=== PATIENT | male | born 1970 | race Caucasian/White ===

== ENCOUNTER 2021-11-02 16:26 | Outpatient (REF) | payer OTHER, SELFPAY ==
[2021-11-03 20:39] LABS: SARS PCR* Negative SARS-CoV-2 (Negative)
== END 2021-11-02 16:27 | disposition home or self-care (01) ==
LOC: NPINS 16:26
PROVIDERS: PCP Family Medicine; Visit Provider Internal Medicine
DX: Z11.52 Encounter for screening for COVID-19 (principal)
CPT/HCPCS: 87635

== ENCOUNTER 2021-11-03 20:35 | Outpatient (CLI) | payer OTHER, SELFPAY | END 2021-11-03 20:36 | disposition home or self-care (01) | LOC: SLEEP 20:35 | PROVIDERS: PCP Family Medicine; Visit Provider Internal Medicine | DX: G47.33 Obstructive sleep apnea (adult) (pediatric) (principal) | CPT/HCPCS: 95810 ==

== ENCOUNTER 2022-10-06 13:32 | Emergency (ER) | payer OTHER, SELFPAY ==
[2022-10-06] VITALS (24 sets, daily range): BP systolic 100–130; BP diastolic 63–94; PULSE 71–88; RESP 16–26; TEMP 36.2–38.6; O2SAT 93–99; BMI 31.0
--- NOTE | 2022-10-06 14:02 | CRLHL7_ITS ---
For Patients: As a result of the Century Cures Act, medical imaging exams and procedure reports are released immediately into your electronic medical record. You may view this report before your referring provider. If you have questions, please contact your health care provider. INDICATION: Leg pain and swelling. TECHNIQUE: Ultrasound venous duplex lower left extremity. Compression venous exam was performed using kulkarni-scale, color Doppler, and spectral Doppler analysis. COMPARISON: None. FINDINGS: Deep veins: Acute DVT involving the visualized left external iliac vein, left common femoral vein, deep femoral vein, femoral vein, popliteal vein, and posterior tibial vein. Superficial veins: Greater saphenous vein is fully compressible. No popliteal cyst. IMPRESSION: Acute DVT involving the visualized left external iliac vein, left common femoral vein, deep femoral vein, femoral vein, popliteal vein, posterior tibial vein. Case discussed with Jv Wing at 4 p.m. on 10/06/2022. Dictated by Adriano Self MD @ 10/06/2022 4:00:15 PM (Electronically Signed)
--- NOTE | 2022-10-06 14:41 | ED.GENADULT ---
HPI - General Adult General Time Seen by Provider: 14:41 Date Seen: 10/06/22 Chief complaint: Lower Extremity Swelling Stated complaint: deep vein thrombosis Time Seen by Provider: 10/06/22 14:40 History of Present Illness HPI narrative: 52-year-old male with history of COPD, sleep apnea, previous shoulder dislocation, presenting to the ER today with concern for pain involving the left buttock, left groin, left thigh, left lower leg with swelling of the thigh and lower leg. Pain initially began with pain in his buttock about 4 days ago on Monday. No antecedent trauma, unusual activity, or known injury. He did have a plane flight to [place] and back about 2 weeks ago and ever since then both of his legs have been mildly sore. He has not had any swelling of his right leg. No abdominal pain or back pain. Over the next couple of days after Monday he began to have worsening pain 1st in his left buttock, then his left groin, Makenzie his left medial thigh and now all the way down to his left lower leg. He is not having any chest pain or shortness of breath. He has had spells where he has been slightly dizzy and sweaty. No pleuritic pain. No cough. No fever. Is not anticoagulated. His gave him 4 baby aspirin this morning. No personal or family history of DVT/PE. No known genetic coagulopathy however he is adopted. Related Data Home Medications Medication Instructions Recorded Confirmed No Known Home Medications 10/06/22 10/06/22 Allergies Allergy/AdvReac Type Severity Reaction Status Date / Time bee venom protein (honey bee) Allergy Severe SOB Verified 10/06/22 13:45 Penicillins Allergy Severe SOB Verified 10/06/22 13:45 Review of Systems Narrative: negative PFSH PFSH Social History Smoking Status: Former smoker Do you use any of these nicotine containing products: Smokeless Tobacco Second hand tobacco smoke exposure: No How often do you have a drink containing alcohol: monthly or less How many standard drinks containing alcohol do you have on a typical day: 1 or 2 How often do you have six or more drinks on one occasion: Never AUDIT-C Alcohol total score: 1 Non-prescribed substance use: denies use service: No Exam Narrative: Exam Narrative: Constitutional: Appears well-developed and well-nourished. Alert. Conversant. Non toxic. HENT: Head: Atraumatic. Nose: Nose normal. Mouth/Throat: Oral mucosa is clear and moist. no trismus. Pharynx normal. Tonsils symmetric. No tonsillar enlargement, erythema, or exudate. Eyes: Conjunctivae normal. EOM normal. Pupils equal, round, and reactive to light. No scleral icterus. Neck: Normal range of motion. Neck supple. No tracheal deviation present. Cardiovascular: Normal rate, regular rhythm. No gallop. No friction rub. No murmur heard. Symmetric radial and DP and PT and femoral artery pulses Pulmonary/Chest: Effort normal. No stridor. No respiratory distress. No wheezes. No rales. No rhonchi . No tenderness. Abdominal: Soft. Bowel sounds normal. No distension. No mass. No tenderness. No rebound. No guarding. Musculoskeletal: RUE: Normal range of motion. No tenderness. No deformity LUE: Normal range of motion in hip, knee, ankle. He does have tenderness and swelling involving the medial thigh, down to the knee and some swelling of his calf. Skin is pink, warm. Brisk cap refill is RLE: Normal range of motion. No edema. No tenderness. No deformity LLE: No deformity. He does have tenderness and swelling involving the left groin, left medial thigh, as well as swelling involving the calf with some edema all the way down to the ankle. There is no cyanosis or pallor. Lymph: No cervical adenopathy. Neurological: Alert and oriented to person, place, and time. Normal strength. CN II-VII intact. No sensory deficit. GCS eye subscore is 4. GCS verbal subscore is 5. GCS motor subscore is 6. Normal coordination Skin: Skin is warm and dry. No rash noted. No pallor. Normal capillary refill. Psychiatric: Normal mood. Normal affect. Const: Vital Signs, click to edit/add: Vital Signs - 24 hr 10/06/22 13:40 10/06/22 14:56 10/06/22 15:06 Temperature 97.2 F L Pulse Rate 71 Pulse Rate [Pulse Oximeter] 76 74 Respiratory Rate 16 26 H Blood Pressure Blood Pressure [Ri ght Upper Arm] 124/63 112/67 Pulse Oximetry 95 94 96 Oxygen Delivery Me thod Room Air Room Air 10/06/22 15:15 10/06/22 15:30 10/06/22 15:45 Temperature Pulse Rate 73 77 71 Pulse Rate [Pulse Oximeter] Respiratory Rate Blood Pressure Blood Pressure [Ri ght Upper Arm] Pulse Oximetry 96 95 97 Oxygen Delivery Me thod 10/06/22 16:00 10/06/22 16:15 10/06/22 16:28 Temperature Pulse Rate 76 74 79 Pulse Rate [Pulse Oximeter] Respiratory Rate Blood Pressure 112/77 Blood Pressure [Ri ght Upper Arm] Pulse Oximetry 95 98 97 Oxygen Delivery Me thod 10/06/22 16:29 10/06/22 16:31 10/06/22 16:31 Temperature Pulse Rate 88 82 Pulse Rate [Pulse Oximeter] 86 Respiratory Rate 18 Blood Pressure 112/67 Blood Pressure [Ri ght Upper Arm] 112/77 Pulse Oximetry 99 99 98 Oxygen Delivery Me thod Room Air 10/06/22 16:45 10/06/22 17:01 10/06/22 17:01 Temperature Pulse Rate 79 75 78 Pulse Rate [Pulse Oximeter] Respiratory Rate Blood Pressure 117/94 H Blood Pressure [Ri ght Upper Arm] Pulse Oximetry 98 98 98 Oxygen Delivery Me thod 10/06/22 17:16 10/06/22 17:31 10/06/22 17:32 Temperature Pulse Rate 75 78 79 Pulse Rate [Pulse Oximeter] Respiratory Rate Blood Pressure 121/72 Blood Pressure [Ri ght Upper Arm] Pulse Oximetry 98 98 97 Oxygen Delivery Me thod 10/06/22 17:33 10/06/22 17:46 10/06/22 18:00 Temperature Pulse Rate 78 85 80 Pulse Rate [Pulse Oximeter] Respiratory Rate Blood Pressure Blood Pressure [Ri ght Upper Arm] Pulse Oximetry 98 93 99 Oxygen Delivery Me thod 10/06/22 18:02 10/06/22 18:03 10/06/22 19:43 Temperature Pulse Rate 79 79 Pulse Rate [Pulse Oximeter] 82 Respiratory Rate 16 Blood Pressure 113/72 Blood Pressure [Ri ght Upper Arm] 130/84 Pulse Oximetry 98 98 99 Oxygen Delivery Me thod Room Air Course Course Hospital Course: Patient recheck on multiple occasions. Hemodynamically stable. At about 730 he was requesting pain medicine for his left leg. No sign of any new or worsening ischemia or complication. Dilaudid p.r.n. ordered. Vital Signs Vital signs: Initial Vital Signs Temperature 97.2 F L 10/06/22 13:40 Temperature Source Temporal Artery Scan 10/06/22 13:40 Pulse Rate 76 10/06/22 13:40 Pulse Rhythm Regular 10/06/22 13:40 Pulse Strength 3+ Normal 10/06/22 13:40 Respiratory Rate 16 10/06/22 13:40 Blood Pressure 124/63 10/06/22 13:40 Blood Pressure Mean 83 10/06/22 13:40 Blood Pressure Position Sitting 10/06/22 13:40 Pulse Oximetry 95 10/06/22 13:40 Oxygen Delivery Method Room Air 10/06/22 13:40 Vital Signs Temperature 97.2 F L 10/06/22 13:40 Pulse Rate 76 10/06/22 13:40 Respiratory Rate 16 10/06/22 13:40 Blood Pressure 124/63 10/06/22 13:40 Pulse Oximetry 95 10/06/22 13:40 Oxygen Delivery Method Room Air 10/06/22 13:40 Temperature 97.2 F L 10/06/22 13:40 Pulse Rate 82 10/06/22 19:43 Respiratory Rate 16 10/06/22 19:43 Blood Pressure 130/84 10/06/22 19:43 Pulse Oximetry 99 10/06/22 19:43 Oxygen Delivery Method Room Air 10/06/22 19:43 Medical Decision Making MDM Narrative Medical decision making narrative: Very pleasant 52-year-old male presenting to the ER today with pain and swelling this started a few days ago in his left buttock, then moved to his left groin, and now involves his entire left lower extremity. Workup here shows evidence for a DVT affecting the left leg. There is a fairly large clot burden with a clot extending all the way from the external vein distally. Fortunately there is no evidence for distal limb ischemia, compartment syndrome, phlegmasia cerulea dolens yet. He has also had some intermittent episodes of sweatiness and shortness of breath. CT scan does also confirm a right lower lobe pulmonary embolism. Fortunately no signs of heart strain on CT, or by labs, or by EKG. He started on heparin here in the ER. Based on the extent of his DVT we feel that transfer to a facility with IR and vascular is indicated to consider possible catheter directed thrombolysis or thrombectomy. Patient and his are agreeable. He is accepted by Dr. Metzger at [facility]. Unfortunately there was an extensive delay before he can receive a bed. He is currently hemodynamically stable, is on heparin drip. He will board here in the ER until transfer can be arranged. Discussed with my oncoming partner, Dr. Ervin Lab Data Labs: Lab Results 10/06/22 10/06/22 Range/Units 15:42 Unknown WBC 11.89 H (4.50-11.00) K/uL RBC 4.06 L (4.30-5.90) m/uL Hgb 11.5 L (13.5-17.5) gm/dL Hct 35.5 L (37.0-53.0) % MCV 87 (80-100) fL MCH 28 (26-34) pg MCHC 32 (32-36) gm/dL RDW Coeff of Jen 12.4 (11.5-15.5) % Plt Count 319 (140-440) K/uL Neut % (Auto) 74.0 H (42.0-72.0) % Lymph % (Auto) 13.5 L (20-44) % [place] % (Auto) 10.0 (0.0-11.0) % Eos % (Auto) 1.7 (0.0-7.0) % Baso % (Auto) 0.3 (0.0-3.0) % Neut # (Auto) 8.80 H (1.7-7.0) K/uL Lymph # (Auto) 1.60 (0.90-2.90) K/uL [place] # (Auto) 1.20 H (0.00-0.90) K/UL Eos # (Auto) 0.20 (0.00-0.50) K/uL Baso # (Auto) 0.00 (0.00-0.30) K/uL Abs Immat Gran (auto) 0.10 (0.00-0.30) K/uL Imm/Tot Granulo (auto) 0.5 % INR 1.13 H (0.91-1.10) APTT 31 (23-33) Seconds Sodium 137 (135-149) mmol/L Potassium 3.7 (3.6-5.1) mmol/L Chloride 102 (96-114) mmol/L Carbon Dioxide 28 (20-32) mmol/L BUN 24 (7-30) mg/dL Creatinine 1.1 (0.5-1.5) mg/dL Estimated Creat Clear 86.76 Estimated GFR 80 ml/min Glucose 101 (60-115) mg/dL Calcium 8.7 (8.4-10.6) mg/dL Troponin I < 0.01 L (0.01-0.04) ng/mL Imaging Data CT scan - chest: Attestation: I have reviewed the pertinent imaging results. Radiologist's impression: Discussed with radiologist by phone. Per completed chart, impression is as follows IMPRESSION: Acute pulmonary emboli in the right lower lobe segmental/subsegmental pulmonary arteries. No definite right heart strain. Venous US: Attestation: I have reviewed the pertinent imaging results. My impression: Discussed with optical manufacturing technician indicates the patient has an extensive left lower extremity DVT extending from the external iliac vein all the way down through the distal veins of the calf. More proximal vein appears to be open. Radiologist's impression: iMPRESSION: Acute DVT involving the visualized left external iliac vein, left common femoral vein, deep femoral vein, femoral vein, popliteal vein, posterior tibial vein. Discharge Plan Discharge Clinical Impression: DVT (deep venous thrombosis), Pulmonary embolism Patient Disposition: [facility] Condition: Guarded Prescriptions: No Action No Known Home Medications Stand Alone Forms: Backyard Info Instructions
--- NOTE | 2022-10-06 15:26 | CRLHL7_ITS ---
For Patients: As a result of the Century Cures Act, medical imaging exams and procedure reports are released immediately into your electronic medical record. You may view this report before your referring provider. If you have questions, please contact your health care provider. INDICATION: Diaphoresis, dizziness. TECHNIQUE: CT chest PE was acquired with 95 cc Isovue 370. IV contrast. COMPARISON: None. FINDINGS: Heart and vasculature: Contrast opacification of the pulmonary arterial tree is adequate. Acute pulmonary emboli involving the right lower lobe segmental/subsegmental pulmonary arteries. Heart size is normal. Thoracic aorta and pulmonary artery are normal in caliber. Lungs and pleura: Scattered atelectasis. No suspicious nodules or infiltrates. No pleural effusions, pleural thickening, or pneumothorax. Lymph nodes/mediastinum: No mediastinal, hilar, or axillary adenopathy. Calcified mediastinal lymph nodes consistent with healed granulomatous disease. Chest wall: No masses. Upper abdomen: No acute or significant findings. Bones: Unremarkable for age. IMPRESSION: Acute pulmonary emboli in the right lower lobe segmental/subsegmental pulmonary arteries. No definite right heart strain. No focal consolidations. Case discussed with Dr. Wing at 5:40 p.m. on 10/06/2022. Please note that all CT scans at this facility use dose modulation, iterative reconstruction, and/or weight-based dosing when appropriate to reduce radiation dose to as low as reasonably achievable. Dictated by Adriano Self MD @ 10/06/2022 5:40:33 PM (Electronically Signed)
[2022-10-06 15:51] LABS: Basophils Percent Auto 0.3 % (0.0-3.0); Eosinophils Percent Auto 1.7 % (0.0-7.0); Hematocrit 35.5 % (37.0-53.0); Hemoglobin* 11.5 gm/dL (13.5-17.5); Immature Granulocytes Pct Auto 0.5 %; Lymphocytes Percent Auto 13.5 % (20-44); Mean Corpuscular HGB Conc 32 gm/dL (32-36); Mean Corpuscular Hemoglobin 28 pg (26-34); Mean Corpuscular Volume 87 fL (80-100); Platelet Count* 319 K/uL (140-440); RDW Coefficient of Variation % 12.4 % (11.5-15.5); Red Blood Count 4.06 m/uL (4.30-5.90); White Blood Count* 11.89 K/uL (4.50-11.00)
[2022-10-06 16:02] LABS: Slide Review Reflex No
[2022-10-06 16:03] LABS: Chloride* 102 mmol/L (96-114); Potassium* 3.7 mmol/L (3.6-5.1); Sodium* 137 mmol/L (135-149)
[2022-10-06 16:06] LABS: Blood Urea Nitrogen* 24 mg/dL (7-30); Carbon Dioxide* 28 mmol/L (20-32); Creatinine* 1.1 mg/dL (0.5-1.5); Est. Creatinine Clearance* 86.76; Estimated Glomerular Filt Rate 80 ml/min
[2022-10-06 16:07] LABS: Calcium* 8.7 mg/dL (8.4-10.6); Glucose* 101 mg/dL (60-115); INR 1.13 (0.91-1.10); Prothrombin Time 15.2 Seconds
[2022-10-06 16:19] LABS: Troponin I* < 0.01 ng/mL (0.01-0.04)
[2022-10-06 18:08] LABS: Partial Thromboplastin Time* 31 Seconds (23-33)
[2022-10-06] MEDS: HEPARIN 5,000 UNIT/0.5 ML INJ 8500 UNIT IVP (18:08)
[2022-10-06] MEDS: HEPARIN 25,000 UNIT/500 ML BAG 30 UNIT IV (18:26)
--- NOTE | 2022-10-06 19:44 | PC.NURSE ---
pt on phone, warm blankets given. requests pain medication.
--- NOTE | 2022-10-06 19:50 | PC.NURSE ---
pt's here, per physician okay to eat dinner. medication ordered for pain (see MAR).
[2022-10-06] MEDS: ACETAMINOPHEN 500 MG TABLET 1000 MG PO (20:38)
[2022-10-06] MEDS: HYDROmorphone 0.5 mg/0.5 ml inj IVP (20:40)
[2022-10-06] MEDS: 0.9 % SODIUM CHLORIDE 1000 ml 1,000 ML IV (20:41)
--- NOTE | 2022-10-06 21:34 | PC.NURSE ---
report given to BRENNAN Cornell. pt to go to [facility] room 5232, tranfer here.
[2022-10-06 22:05] LABS: SARS PCR* Negative SARS-CoV-2 (Negative)
== END 2022-10-06 23:54 | disposition short-term general hospital (02) ==
PROVIDERS: Emergency Provider Emergency Medicine; PCP Family Medicine
DX: I82.409 Acute embolism and thrombosis of unspecified deep veins of unspecified lower extremity (principal); I26.99 Other pulmonary embolism without acute cor pulmonale
CPT/HCPCS: 36415; 71275; 80048; 84484; 85025; 85610; 85730; 87040; 87635; 93005; 93971; 99285; A9270; J1170; J1644; J7030; Q9967

== ENCOUNTER 2022-10-06 21:38 | Outpatient (CLI) | payer OTHER, SELFPAY | END 2022-10-06 21:39 | disposition home or self-care (01) | LOC: AMB 10-10 10:26 | PROVIDERS: PCP Family Medicine; Visit Provider Emergency Medicine Emergency Medical Services | DX: I26.99 Other pulmonary embolism without acute cor pulmonale (principal); I82.409 Acute embolism and thrombosis of unspecified deep veins of unspecified lower extremity | CPT/HCPCS: A0425; A0426; A0427 ==

== ENCOUNTER 2022-10-10 18:11 | Emergency (ER) | payer OTHER, SELFPAY ==
[2022-10-10 18:14] VITALS: BP 122/63; PULSE 84; RESP 18; TEMP 36.3; O2SAT 100; BMI 31.7
== END 2022-10-10 18:33 | disposition left against medical advice (07) ==
PROVIDERS: Emergency Provider Emergency Medicine Emergency Medical Services; PCP Family Medicine
DX: Z53.21 Procedure and treatment not carried out due to patient leaving prior to being seen by health care provider (principal)

== ENCOUNTER 2022-10-16 19:04 | Emergency (ER) | payer OTHER, SELFPAY ==
[2022-10-16 19:15] VITALS: BP 118/77; PULSE 83; RESP 18; TEMP 36.4; O2SAT 97; BMI 31.0
--- NOTE | 2022-10-16 20:32 | ED.GENADULT ---
HPI - General Adult General Time Seen by Provider: 20:32 <Lindsey Hicks MD - Last Filed: 10/18/22 07:59> Date Seen: 10/16/22 <Lindsey Hicks MD - Last Filed: 10/18/22 07:59> Chief complaint: Post Op Complication <Lindsey Hicks MD - Last Filed: 10/18/22 07:59> Stated complaint: possible post op infection <Lindsey Hicks MD - Last Filed: 10/18/22 07:59> Time Seen by Provider: 10/16/22 20:14 <Lindsey Hicks MD - Last Filed: 10/18/22 07:59> Source: patient, RN notes reviewed and old records reviewed <Lindsey Hicks MD - Last Filed: 10/18/22 07:59> Mode of arrival: ambulatory <Lindsey Hicks MD - Last Filed: 10/18/22 07:59> Limitations: no limitations <Lindsey Hicks MD - Last Filed: 10/18/22 07:59> History of Present Illness HPI narrative: Patient is a 52-year-old male coming in with concern for possible infection of vascular sites. Patient has had a recent complex history of diagnosis of significant occlusive DVT in his left lower extremity and pulmonary embolus on October 06, was transferred to [facility]. He reportedly underwent thrombectomy and had stent placement in the vein. He was discharged on Plavix and Eliquis. He was readmitted with recurrent DVT, had TPA infusion and then recurrent thrombectomy. Was discharged on aspirin, Plavix and Lovenox. He has not missed any doses of Lovenox. He has been consistently taking them on time. He has no respiratory symptoms, no chest pain. What brought them back today is the thigh is looking more swollen, had been decreasing in size, is developing a rash on this leg that has been progressive. The lower site in his calf from 1 of the procedures rubbed on the bed in did start bleeding. She noticed a little redness, his , on an upper site on the posterior aspect of his leg where he had some of the vascular work done. They are wondering if he could have an infection. He had a temperature of 99.9? this afternoon. He has been wearing compression stockings on both legs, the other leg was not having the rash. Thus, not likely a heat rash from compression stockings being worn. Rash maybe feels slightly itchy, he has not taken anything for it. His notes that she feels like his pulses are a little diminished in his left foot now when he stands, the great toe on that side gets a little more purple and dusky with standing and it had not been prior today. Overall he is not having increased pain in this leg, no numbness tingling. <Lindsey Hicks MD - Last Filed: 10/18/22 07:59> Related Data Home medications: Home Medications Medication Instructions Recorded Confirmed Eliquis DVT-PE Treat 30D Start 10/10/22 Plavix 10/10/22 aspirin 81 mg tablet,delayed PO 10/16/22 release enoxaparin 100 mg/mL subcutaneous mg subcut 10/16/22 syringe <Lindsey Hicks MD - Last Filed: 10/18/22 07:59> Allergies/adverse reactions: Allergies Allergy/AdvReac Type Severity Reaction Status Date / Time bee venom protein (honey bee) Allergy Severe SOB Verified 10/06/22 13:45 Penicillins Allergy Severe SOB Verified 10/06/22 13:45 <Lindsey Hicks MD - Last Filed: 10/18/22 07:59> Review of Systems Status of ROS: Reports: 6 or more systems reviewed and unremarkable except as noted in History and below <Lindsey Hicks MD - Last Filed: 10/18/22 07:59> [facility] Medical History: Medical History DVT (deep venous thrombosis) ?I82.409 - Acute embolism and thrombosis of unspecified deep veins of unspecified lower extremity (ICD-10) <Lindsey Hicks MD - Last Filed: 10/18/22 07:59> Social History: Social History Smoking Status: Former smoker Do you use any of these nicotine containing products: Smokeless Tobacco Second hand tobacco smoke exposure: No How often do you have a drink containing alcohol: monthly or less How many standard drinks containing alcohol do you have on a typical day: 1 or 2 How often do you have six or more drinks on one occasion: Never AUDIT-C Alcohol total score: 1 Non-prescribed substance use: denies use service: No <Lindsey Hicks MD - Last Filed: 10/18/22 07:59> Exam Const: Vital Signs, click to edit/add: Vital Signs - 24 hr 10/16/22 19:15 10/16/22 20:44 10/16/22 20:45 Temperature 97.5 F L Pulse Rate Pulse Rate [Pulse Oximeter] 83 83 Respiratory Rate 18 18 Blood Pressure Blood Pressure [Ri ght Upper Arm] 118/77 Pulse Oximetry 97 98 98 Oxygen Delivery Me thod Room Air Room Air 10/16/22 22:46 10/16/22 23:02 10/17/22 00:01 Temperature 98.2 F Pulse Rate 80 78 Pulse Rate [Pulse Oximeter] 78 Respiratory Rate 16 16 16 Blood Pressure 128/84 118/69 Blood Pressure [Ri ght Upper Arm] 126/80 Pulse Oximetry 99 99 96 Oxygen Delivery Me thod Room Air 10/17/22 00:12 10/17/22 01:01 10/17/22 02:02 Temperature 98.2 F Pulse Rate 72 85 Pulse Rate [Pulse Oximeter] Respiratory Rate 16 16 Blood Pressure 109/57 L 130/75 Blood Pressure [Ri ght Upper Arm] Pulse Oximetry 97 96 Oxygen Delivery Me thod 10/17/22 03:02 10/17/22 04:03 10/17/22 05:02 Temperature Pulse Rate 76 89 92 Pulse Rate [Pulse Oximeter] Respiratory Rate 16 16 16 Blood Pressure 104/58 L 119/85 125/74 Blood Pressure [Ri ght Upper Arm] Pulse Oximetry 98 96 98 Oxygen Delivery Me thod 10/17/22 06:05 10/17/22 07:04 Temperature Pulse Rate 80 84 Pulse Rate [Pulse Oximeter] Respiratory Rate 16 16 Blood Pressure 125/74 118/60 Blood Pressure [Ri ght Upper Arm] Pulse Oximetry 94 97 Oxygen Delivery Me thod 52-year-old male is alert interactive no apparent distress, able speak in complete sentences. Face atraumatic, sclera clear, conjugate gaze. Neck supple, note no jugular venous distension or masses. Lungs are clear, good air entry, no wheezing or crackles. CV regular rate and rhythm, no murmur, normal S1 and S2. Abdomen is soft, nontender nondistended. Left thigh is grossly larger than the right and is afflicted with erythematous macular papular type rash. There are no vesicles, really is a nondescript looking rash. The rash is blanchable, not petechial. His left lower extremity is a little bit more edematous than the right but the left thigh is really what is most markedly swollen. It is not tender when I palpate. The procedural wounds on the back of the leg do not appear infected to me. He has whitish eschar on the upper outer wound behind the knee and the lower 1 has some dried blood around it. His it had these bandaged and I did remove them. Looking at these wounds, I am not worried about infection. Reviewed with them that the rash looks more reminiscent of possibly drug reaction? Did review with him that I certainly will consider infectious etiology. <Lindsey Hicks MD - Last Filed: 10/18/22 07:59> Vital Signs, click to edit/add: Vital Signs - 24 hr 10/16/22 19:15 10/16/22 20:44 10/16/22 20:45 Temperature 97.5 F L Pulse Rate Pulse Rate [Pulse Oximeter] 83 83 Respiratory Rate 18 18 Blood Pressure Blood Pressure [Ri ght Upper Arm] 118/77 Pulse Oximetry 97 98 98 Oxygen Delivery Me thod Room Air Room Air 10/16/22 22:46 10/16/22 23:02 10/17/22 00:01 Temperature 98.2 F Pulse Rate 80 78 Pulse Rate [Pulse Oximeter] 78 Respiratory Rate 16 16 16 Blood Pressure 128/84 118/69 Blood Pressure [Ri ght Upper Arm] 126/80 Pulse Oximetry 99 99 96 Oxygen Delivery Me thod Room Air 10/17/22 00:12 10/17/22 01:01 10/17/22 02:02 Temperature 98.2 F Pulse Rate 72 85 Pulse Rate [Pulse Oximeter] Respiratory Rate 16 16 Blood Pressure 109/57 L 130/75 Blood Pressure [Ri ght Upper Arm] Pulse Oximetry 97 96 Oxygen Delivery Me thod 10/17/22 03:02 10/17/22 04:03 10/17/22 05:02 Temperature Pulse Rate 76 89 92 Pulse Rate [Pulse Oximeter] Respiratory Rate 16 16 16 Blood Pressure 104/58 L 119/85 125/74 Blood Pressure [Ri ght Upper Arm] Pulse Oximetry 98 96 98 Oxygen Delivery Me thod 10/17/22 06:05 10/17/22 07:04 Temperature Pulse Rate 80 84 Pulse Rate [Pulse Oximeter] Respiratory Rate 16 16 Blood Pressure 125/74 118/60 Blood Pressure [Ri ght Upper Arm] Pulse Oximetry 94 97 Oxygen Delivery Me thod <Nayla Huang MD - Last Filed: 10/17/22 07:46> Documenting provider has reviewed patient's vital signs: yes <Lindsey Hicks MD - Last Filed: 10/18/22 07:59> Course Course Hospital Course: Patient has a complex history of recurrent thromboembolic disease and failed anticoagulant course recently. Need to obtain an ultrasound of his left lower extremity to see if there is recurrent DVT. I am wondering if the rash is maybe possibly drug related. He is not that symptomatic at this time and certainly does not appear petechial. We will be getting full set a labs, will initiate 1 blood culture and we can do a 2nd 1 if this is looking like it might be infectious in nature. He currently is hemodynamically stable. Will have him take his Lovenox injection at his scheduled time tonight as we do not want him to miss that. <Lindsey Hicks MD - Last Filed: 10/18/22 07:59> Reevaluation(s) Time of Reevaluation #1: 21:33 <Lindsey Hicks MD - Last Filed: 10/18/22 07:59> Reevaluation #1: Nursing had reported to me that patient was noting increased seen area of the rash onto his torso when he gave himself his Lovenox shot that was do this evening. I did stop in and indeed he does have a faint erythematous maculopapular type rash developing on abdomen and chest. It is not all that symptomatic, he is hemodynamically stable. We are waiting labs, ultrasound of his left lower extremity to be redone. <Lindsey Hicks MD - Last Filed: 10/18/22 07:59> Time of Reevaluation #2: 23:46 <Lindsey Hicks MD - Last Filed: 10/18/22 07:59> Reevaluation #2: We are waiting for decorator consultant to contact me back from [facility]. Had asked staff to contact them back as I had not heard, their waiting Hematology to page back. Reviewed this with the patient and his , they never did see hematology at [facility], spoke with Interventional Radiology and vascular up there but have never seeing hematology. Reviewed with them that the ICU physician reviewed with the access center that they recommended Hematology. I will contact the ICU physician and see if we can review this case to come up with management plan. Patient believes that he was told that his leg was clear of clot at discharge. This was reportedly based on a venogram potentially. <Lindsey Hicks MD - Last Filed: 10/18/22 07:59> Time of Reevaluation #3: 00:14 <Lindsey Hicks MD - Last Filed: 10/18/22 07:59> Reevaluation #3: Reviewed with patient and his that it spoke with the cooking instructor at [facility]. He is placed on the waiting list, will need to talk to the hospitalist to give final report and acceptance. Reviewed the heparin drip without a bolus as he has been on Lovenox. <Lindsey Hicks MD - Last Filed: 10/18/22 07:59> Consultations Consultation #1: Did finally speak with the cooking instructor Dr. Melgar from [facility]. Reviewed the situation in he was able to review the chart. He recommended that we start the patient on heparin drip without bolus given he had been on Lovenox. He had the access center place the patient on the wait list, we will need to talk to the hospitalist eventually. He discuss that they can do a punch biopsy of the rash once up there, consult vascular, redo venogram if need be. <Lindsey Hicks MD - Last Filed: 10/18/22 07:59> Time: 11:56 <Lindsey Hicks MD - Last Filed: 10/18/22 07:59> Time: 05:20 <Nayla Huang MD - Last Filed: 10/17/22 07:46> Consultation #3: I accepted care from the evening provider. Patient was started on heparin drip. I continued seeing new patients. Per nursing team, he has remained stable and has not required any interventions. Vital signs were briefly reviewed. Patient with extensive DVT in now concern for occlusive thrombus per my outgoing partner. New rash and increased swelling in the leg. Patient has been accepted by Dr. Mclaughlin at [facility], anticipating bed availability within the hour and ALS transfer. Will remain on heparin drip. <Nayla Huang MD - Last Filed: 10/17/22 07:46> Time: 07:25 <Nayla Huang MD - Last Filed: 10/17/22 07:46> Additional Consultation(s): Patient transferred without complication via EMS <Nayla Huang MD - Last Filed: 10/17/22 07:46> Vital Signs Vital signs: Initial Vital Signs Temperature 97.5 F L 10/16/22 19:15 Temperature Source Temporal Artery Scan 10/16/22 19:15 Pulse Rate 83 10/16/22 19:15 Respiratory Rate 18 10/16/22 19:15 Blood Pressure 118/77 10/16/22 19:15 Blood Pressure Mean 90 10/16/22 19:15 Blood Pressure Position Sitting 10/16/22 19:15 Pulse Oximetry 97 10/16/22 19:15 Oxygen Delivery Method Room Air 10/16/22 19:15 Vital Signs Temperature 97.5 F L 10/16/22 19:15 Pulse Rate 83 10/16/22 19:15 Respiratory Rate 18 10/16/22 19:15 Blood Pressure 118/77 10/16/22 19:15 Pulse Oximetry 97 10/16/22 19:15 Oxygen Delivery Method Room Air 10/16/22 19:15 Temperature 98.2 F 10/17/22 00:12 Pulse Rate 84 10/17/22 07:04 Respiratory Rate 16 10/17/22 07:04 Blood Pressure 118/60 10/17/22 07:04 Pulse Oximetry 97 10/17/22 07:04 Oxygen Delivery Method Room Air 10/16/22 22:46 <Lindsey Hicks MD - Last Filed: 10/18/22 07:59> Initial Vital Signs Temperature 97.5 F L 10/16/22 19:15 Temperature Source Temporal Artery Scan 10/16/22 19:15 Pulse Rate 83 10/16/22 19:15 Respiratory Rate 18 10/16/22 19:15 Blood Pressure 118/77 10/16/22 19:15 Blood Pressure Mean 90 10/16/22 19:15 Blood Pressure Position Sitting 10/16/22 19:15 Pulse Oximetry 97 10/16/22 19:15 Oxygen Delivery Method Room Air 10/16/22 19:15 Vital Signs Temperature 97.5 F L 10/16/22 19:15 Pulse Rate 83 10/16/22 19:15 Respiratory Rate 18 10/16/22 19:15 Blood Pressure 118/77 10/16/22 19:15 Pulse Oximetry 97 10/16/22 19:15 Oxygen Delivery Method Room Air 10/16/22 19:15 Temperature 98.2 F 10/17/22 00:12 Pulse Rate 84 10/17/22 07:04 Respiratory Rate 16 10/17/22 07:04 Blood Pressure 118/60 10/17/22 07:04 Pulse Oximetry 97 10/17/22 07:04 Oxygen Delivery Method Room Air 10/16/22 22:46 <Nayla Huang MD - Last Filed: 10/17/22 07:46> Medical Decision Making Lab Data Lab results reviewed: Yes I reviewed the patient's lab results <Lindsey Hicks MD - Last Filed: 10/18/22 07:59> Labs: Lab Results 10/16/22 10/17/22 Range/Units 20:55 06:44 WBC 13.62 H 11.34 H (4.50-11.00) K/uL RBC 3.91 L 3.88 L (4.30-5.90) m/uL Hgb 11.1 L 11.0 L (13.5-17.5) gm/dL Hct 34.4 L 34.1 L (37.0-53.0) % MCV 88 88 (80-100) fL MCH 28 28 (26-34) pg MCHC 32 32 (32-36) gm/dL RDW Coeff of Jen 12.8 12.9 (11.5-15.5) % Plt Count 485 H 464 H (140-440) K/uL Neut % (Auto) 71.7 68.3 (42.0-72.0) % Lymph % (Auto) 14.7 L 16.4 L (20-44) % Emery % (Auto) 6.5 7.1 (0.0-11.0) % Eos % (Auto) 2.4 3.8 (0.0-7.0) % Baso % (Auto) 0.4 0.4 (0.0-3.0) % Neut # (Auto) 9.80 H 7.70 H (1.7-7.0) K/uL Lymph # (Auto) 2.00 1.90 (0.90-2.90) K/uL Emery # (Auto) 0.90 0.80 (0.00-0.90) K/UL Eos # (Auto) 0.30 0.40 (0.00-0.50) K/uL Baso # (Auto) 0.10 0.00 (0.00-0.30) K/uL Abs Immat Gran (auto) 0.60 H 0.50 H (0.00-0.30) K/uL Imm/Tot Granulo (auto) 4.3 4.0 % Diff Slide Review Acceptable Review (Acceptable) ESR 16 H (2-15) mm/hr INR 0.98 (0.91-1.10) APTT 41 H (23-33) Seconds Sodium 139 138 (135-149) mmol/L Potassium 4.1 4.2 (3.6-5.1) mmol/L Chloride 105 106 (96-114) mmol/L Carbon Dioxide 25 23 (20-32) mmol/L BUN 22 17 (7-30) mg/dL Creatinine 0.9 0.8 (0.5-1.5) mg/dL Estimated Creat Clear 106.04 119.30 Estimated GFR 101 105 ml/min Glucose 91 113 (60-115) mg/dL Calcium 8.7 (8.4-10.6) mg/dL Total Bilirubin 0.3 (0.1-1.5) mg/dL AST 24 (12-35) U/L ALT 30 (4-50) U/L Alkaline Phosphatase 74 (40-150) U/L C-Reactive Protein 1.7 H (0.5-1.0) mg/dL Total Protein 7.1 (6.0-8.3) g/dL Albumin 4.0 (3.3-5.0) g/dL Procalcitonin 0.07 (<0.50) ng/mL <Lindsey Hicks MD - Last Filed: 10/18/22 07:59> Lab Results 10/16/22 10/17/22 Range/Units 20:55 06:44 WBC 13.62 H 11.34 H (4.50-11.00) K/uL RBC 3.91 L 3.88 L (4.30-5.90) m/uL Hgb 11.1 L 11.0 L (13.5-17.5) gm/dL Hct 34.4 L 34.1 L (37.0-53.0) % MCV 88 88 (80-100) fL MCH 28 28 (26-34) pg MCHC 32 32 (32-36) gm/dL RDW Coeff of Jen 12.8 12.9 (11.5-15.5) % Plt Count 485 H 464 H (140-440) K/uL Neut % (Auto) 71.7 68.3 (42.0-72.0) % Lymph % (Auto) 14.7 L 16.4 L (20-44) % Emery % (Auto) 6.5 7.1 (0.0-11.0) % Eos % (Auto) 2.4 3.8 (0.0-7.0) % Baso % (Auto) 0.4 0.4 (0.0-3.0) % Neut # (Auto) 9.80 H 7.70 H (1.7-7.0) K/uL Lymph # (Auto) 2.00 1.90 (0.90-2.90) K/uL Emery # (Auto) 0.90 0.80 (0.00-0.90) K/UL Eos # (Auto) 0.30 0.40 (0.00-0.50) K/uL Baso # (Auto) 0.10 0.00 (0.00-0.30) K/uL Abs Immat Gran (auto) 0.60 H 0.50 H (0.00-0.30) K/uL Imm/Tot Granulo (auto) 4.3 4.0 % Diff Slide Review Acceptable Review (Acceptable) ESR 16 H (2-15) mm/hr INR 0.98 (0.91-1.10) APTT 41 H (23-33) Seconds Sodium 139 138 (135-149) mmol/L Potassium 4.1 4.2 (3.6-5.1) mmol/L Chloride 105 106 (96-114) mmol/L Carbon Dioxide 25 23 (20-32) mmol/L BUN 22 17 (7-30) mg/dL Creatinine 0.9 0.8 (0.5-1.5) mg/dL Estimated Creat Clear 106.04 119.30 Estimated GFR 101 105 ml/min Glucose 91 113 (60-115) mg/dL Calcium 8.7 (8.4-10.6) mg/dL Total Bilirubin 0.3 (0.1-1.5) mg/dL AST 24 (12-35) U/L ALT 30 (4-50) U/L Alkaline Phosphatase 74 (40-150) U/L C-Reactive Protein 1.7 H (0.5-1.0) mg/dL Total Protein 7.1 (6.0-8.3) g/dL Albumin 4.0 (3.3-5.0) g/dL Procalcitonin 0.07 (<0.50) ng/mL <Nayla Huang MD - Last Filed: 10/17/22 07:46> Imaging Data Venous US: Attestation: I have reviewed the pertinent imaging results. <Lindsey Hicks MD - Last Filed: 10/18/22 07:59> Radiologist's impression: Patient: MANASA ESPINAL Facility:?[facility] Patient ID:?[id number] Site Patient ID:?[id number]. Site :?[id number] Study:?US Extremity Left LEV-10/16/2022 9:52:49 PM Ordering Physician:?Kurt Portillo Final Report: INDICATION: Known DVT. Thigh swelling. COMPARISON: 10/06/2022 TECHNIQUE: A compression venous ultrasound exam was performed of the left lower extremity using kulkarni-scale imaging, color Doppler and spectral Doppler analysis. FINDINGS: Flow is present within the left common femoral vein which was not present on the prior study. Flow also present within the proximal left femoral vein. However, there is absence of flow within the mid femoral vein and distal femoral vein. Flow is also now present within the popliteal vein and there is some flow within the peroneal veins. Flow is present in the IVC and right common femoral vein with normal compressibility of the right common femoral vein. IMPRESSION: Postprocedural changes of thrombectomy involving the left common femoral vein and proximal left femoral vein along with the left popliteal vein. Persistent DVT elsewhere throughout the left lower extremity. There may be some improved flow within the calf veins. Dictated by Nigel Patel MD @ 10/16/2022 10:15:21 PM (Electronic Signature) <Lindsey Hicks MD - Last Filed: 10/18/22 07:59> Critical Care Time Critical Care Time Critical Care Time: No <Lindsey Hicks MD - Last Filed: 10/18/22 07:59> Discharge Plan Discharge Clinical Impression: DVT (deep venous thrombosis), Rash <Lindsey Hicks MD - Last Filed: 10/18/22 07:59> Patient Disposition: [facility] <Lindsey Hicks MD - Last Filed: 10/18/22 07:59> Discharge Location: [facility] <Lindsey Hicks MD - Last Filed: 10/18/22 07:59> Condition: Unchanged <Lindsey Hicks MD - Last Filed: 10/18/22 07:59> Prescriptions: No Action Eliquis DVT-PE Treat 30D Start Hold Instructions: Doctor's Order Plavix Hold Instructions: Doctor's Order aspirin 81 mg tablet,delayed release (DR/EC) PO enoxaparin 100 mg/mL syringe subcut <Lindsey Hicks MD - Last Filed: 10/18/22 07:59> [facility] Al[facility]: [facility] <Lindsey Hicks MD - Last Filed: 10/18/22 07:59>
[2022-10-16 20:44] VITALS: O2SAT 98
--- NOTE | 2022-10-16 20:44 | CRLHL7_ITS ---
For Patients: As a result of the Century Cures Act, medical imaging exams and procedure reports are released immediately into your electronic medical record. You may view this report before your referring provider. If you have questions, please contact your health care provider. INDICATION: Known DVT. Thigh swelling. COMPARISON: 10/06/2022 TECHNIQUE: A compression venous ultrasound exam was performed of the left lower extremity using kulkarni-scale imaging, color Doppler and spectral Doppler analysis. FINDINGS: Flow is present within the left common femoral vein which was not present on the prior study. Flow also present within the proximal left femoral vein. However, there is absence of flow within the mid femoral vein and distal femoral vein. Flow is also now present within the popliteal vein and there is some flow within the peroneal veins. Flow is present in the IVC and right common femoral vein with normal compressibility of the right common femoral vein. IMPRESSION: Postprocedural changes of thrombectomy involving the left common femoral vein and proximal left femoral vein along with the left popliteal vein. Persistent DVT elsewhere throughout the left lower extremity. There may be some improved flow within the calf veins. Dictated by Nigel Patel MD @ 10/16/2022 10:15:21 PM (Electronically Signed)
[2022-10-16 20:45] VITALS: PULSE 83; RESP 18; O2SAT 98
[2022-10-16 21:07] LABS: Basophils Percent Auto 0.4 % (0.0-3.0); Eosinophils Percent Auto 2.4 % (0.0-7.0); Hematocrit 34.4 % (37.0-53.0); Hemoglobin* 11.1 gm/dL (13.5-17.5); Immature Granulocytes Pct Auto 4.3 %; Lymphocytes Percent Auto 14.7 % (20-44); Mean Corpuscular HGB Conc 32 gm/dL (32-36); Mean Corpuscular Hemoglobin 28 pg (26-34); Mean Corpuscular Volume 88 fL (80-100); Monocytes Percent Auto 6.5 % (0.0-11.0); Neutrophils Percent Auto 71.7 % (42.0-72.0); Platelet Count* 485 K/uL (140-440); RDW Coefficient of Variation % 12.8 % (11.5-15.5); Red Blood Count 3.91 m/uL (4.30-5.90); White Blood Count* 13.62 K/uL (4.50-11.00)
--- NOTE | 2022-10-16 21:12 | ED.NURSE ---
patient has a fine red rash on legs and noticed increasing up to the abdomen that was not there earlier today. denies itchy and concerned of allergic reaction. Updated Dr. Feliciano of this.
[2022-10-16 21:15] LABS: Slide Review Reflex Yes
[2022-10-16 21:21] LABS: Chloride* 105 mmol/L (96-114); Potassium* 4.1 mmol/L (3.6-5.1); Sodium* 139 mmol/L (135-149)
[2022-10-16 21:23] LABS: Creatinine* 0.9 mg/dL (0.5-1.5); Est. Creatinine Clearance* 106.04; Estimated Glomerular Filt Rate 101 ml/min
[2022-10-16 21:24] LABS: Alanine Aminotransferase* 30 U/L (4-50); Alkaline Phosphatase* 74 U/L (40-150); Aspartate Amino Transferase* 24 U/L (12-35); Bilirubin Total* 0.3 mg/dL (0.1-1.5); Blood Urea Nitrogen* 22 mg/dL (7-30); Carbon Dioxide* 25 mmol/L (20-32); Glucose* 91 mg/dL (60-115); Total Protein* 7.1 g/dL (6.0-8.3)
[2022-10-16 21:27] LABS: C Reactive Protein* 1.7 mg/dL (0.5-1.0)
[2022-10-16 21:36] LABS: Slide Review Acceptable Review (Acceptable)
[2022-10-16 21:41] LABS: Procalcitonin* 0.07 ng/mL (<0.50)
--- NOTE | 2022-10-16 21:42 | ED.NURSE ---
US is finished and wanted to walk to the bathroom.
[2022-10-16 21:53] LABS: Erythrocyte SedimentationRate* 16 mm/hr (2-15)
[2022-10-16] MEDS: ACETAMINOPHEN 500 MG TABLET 1000 MG PO (22:41)
[2022-10-16 22:46] VITALS: BP 126/80; PULSE 78; RESP 16; O2SAT 99
--- NOTE | 2022-10-16 22:49 | ED.NURSE ---
patient has a lower left dressing on the calf area from thrombectomy x 2
[2022-10-16 23:02] VITALS: BP 128/84; PULSE 80; RESP 16; TEMP 36.8; O2SAT 99
[2022-10-17] VITALS (9 sets, daily range): BP systolic 104–130; BP diastolic 57–85; PULSE 72–92; RESP 16; TEMP 36.8; O2SAT 94–98
[2022-10-17] MEDS: HEPARIN 25,000 UNIT/500 ML BAG 30 UNIT IV (00:20)
[2022-10-17 06:55] LABS: Basophils Percent Auto 0.4 % (0.0-3.0); Eosinophils Percent Auto 3.8 % (0.0-7.0); Hematocrit 34.1 % (37.0-53.0); Lymphocytes Percent Auto 16.4 % (20-44); Mean Corpuscular HGB Conc 32 gm/dL (32-36); Mean Corpuscular Hemoglobin 28 pg (26-34); Mean Corpuscular Volume 88 fL (80-100); Monocytes Percent Auto 7.1 % (0.0-11.0); Neutrophils Percent Auto 68.3 % (42.0-72.0); Platelet Count* 464 K/uL (140-440); RDW Coefficient of Variation % 12.9 % (11.5-15.5); Red Blood Count 3.88 m/uL (4.30-5.90)
[2022-10-17 07:14] LABS: INR 0.98 (0.91-1.10); Prothrombin Time 13.6 Seconds
[2022-10-17 07:15] LABS: Partial Thromboplastin Time* 41 Seconds (23-33)
--- NOTE | 2022-10-17 07:23 | ED.NURSE ---
report given to Lulu AMIN at [facility]. ptt was 41 and conveyed to Lulu. pt. ransferred to [facility] via [facility]. hep. gtt running at 1500 units/hr.
[2022-10-17 07:33] LABS: Chloride* 106 mmol/L (96-114); Sodium* 138 mmol/L (135-149)
[2022-10-17 07:34] LABS: Potassium* 4.2 mmol/L (3.6-5.1)
[2022-10-17 07:36] LABS: Carbon Dioxide* 23 mmol/L (20-32); Creatinine* 0.8 mg/dL (0.5-1.5); Estimated Glomerular Filt Rate 105 ml/min
[2022-10-17 07:37] LABS: Blood Urea Nitrogen* 17 mg/dL (7-30); Calcium* 8.7 mg/dL (8.4-10.6); Glucose* 113 mg/dL (60-115)
[2022-10-17 07:51] LABS: Slide Review Reflex No; White Blood Count* 11.34 K/uL (4.50-11.00)
[2022-10-20 18:26] LABS: Calcium* 8.8 mg/dL (8.4-10.6)
== END 2022-10-17 07:33 | disposition short-term general hospital (02) ==
PROVIDERS: Emergency Provider Family Medicine; PCP Family Medicine
DX: I82.502 Chronic embolism and thrombosis of unspecified deep veins of left lower extremity (principal); R21 Rash and other nonspecific skin eruption
CPT/HCPCS: 36415; 80048; 80053; 84145; 85025; 85610; 85651; 85730; 86140; 87040; 93971; 94761; 99284; A9270; J1644

== ENCOUNTER 2022-10-17 07:18 | Outpatient (CLI) | payer OTHER, SELFPAY | END 2022-10-17 07:19 | disposition home or self-care (01) | LOC: AMB 10-20 10:42 | PROVIDERS: PCP Family Medicine; Visit Provider Family Medicine | DX: I82.402 Acute embolism and thrombosis of unspecified deep veins of left lower extremity (principal) | CPT/HCPCS: A0425; A0434 ==

== ENCOUNTER 2022-10-26 14:37 | Emergency (ER) | payer OTHER, SELFPAY ==
[2022-10-26] VITALS (33 sets, daily range): BP systolic 72–140; BP diastolic 59–92; PULSE 65–81; RESP 20; TEMP 36; O2SAT 96–99; BMI 29.0
--- NOTE | 2022-10-26 15:04 | CRLHL7_ITS ---
For Patients: As a result of the Century Cures Act, medical imaging exams and procedure reports are released immediately into your electronic medical record. You may view this report before your referring provider. If you have questions, please contact your health care provider. INDICATION: Left arm numbness. Left leg fell asleep. Anxious. COMPARISON: October 06, 2022. TECHNIQUE: : CT examination of the chest was performed with the uneventful intravenous administration of 95 cc of Isovue 370 while thin axial sections were obtained from above the apices of the lungs to the lung bases. Please note that all CT scans at this facility use dose modulation, iterative reconstruction, and/or weight-based dosing when appropriate to reduce radiation dose to as low as reasonably achievable. FINDINGS: : HEART and MEDIASTINUM: The heart size is normal. There is no mediastinal or hilar adenopathy or mass. There is no pericardial effusion.Evidence of remote granulomatous infection PULMONARY ARTERIAL CIRCULATION: There is no visible intraluminal filling defect to suggest pulmonary embolus. A pulmonary embolus was noted on the prior study which is no longer present. LUNGS: The lungs show no focal consolidation or mass. There is evidence of remote granulomatous infection. The airways appear normal. Minimal bibasilar subsegmental atelectasis. PLEURAL SPACES: There is no pleural effusion, pneumothorax or pleural based mass. VISUALIZED UPPER ABDOMEN: The limited visualized upper abdominal structures appear normal. OSSEOUS STRUCTURES: Age-appropriate appearance. No acute fracture or destructive process. TUBES and LINES: None. IMPRESSION: No findings of pulmonary embolus. Minimal bibasilar subsegmental atelectasis. The pulmonary embolus noted on the prior study has resolved no new or progressive embolic disease within the lungs. Please note that all CT scans at this facility use dose modulation, iterative reconstruction, and/or weight-based dosing when appropriate to reduce radiation dose to as low as reasonably achievable. Dictated by Kofi Butterfield MD @ 10/26/2022 4:56:59 PM (Electronically Signed)
--- NOTE | 2022-10-26 15:04 | CRLHL7_ITS ---
For Patients: As a result of the Cures Act, medical imaging exams and procedure reports are released immediately into your electronic medical record. You may view this report before your referring provider. If you have questions, please contact your health care provider. INDICATION: Left arm numbness. TECHNIQUE: CT of the head without contrast. Coronal and sagittal reformats are included. COMPARISON: Head CT from 10/04/2018. FINDINGS: No CT evidence of acute cortical infarct. No loss of talavera white matter differentiation. No hyperdense vessels to suggest intracranial thrombus. No acute intracranial hemorrhage. No mass effect or midline shift. No hydrocephalus or extra-axial collections. White matter is within normal limits for age. Small calcifications within the anterior aspect of the 3rd ventricle as well as the 4th ventricle. These are nonspecific, but may reflect sequela of prior infectious/inflammatory process. No acute osseous abnormalities. Mastoid air cells and paranasal sinuses are clear. Normal soft tissues. IMPRESSION: IMPRESSION:1. No CT evidence of acute cortical infarct. No acute intracranial hemorrhage. No other acute intracranial findings. Please note that all CT scans at this facility use dose modulation, iterative reconstruction, and/or weight-based dosing when appropriate to reduce radiation dose to as low as reasonably achievable. Dictated by Miller Pabon MD @ 10/26/2022 4:34:46 PM (Electronically Signed)
--- NOTE | 2022-10-26 15:07 | ED_ITS ---
HPI - General Adult General Time Seen by Provider: 15:07 <Toño Amaro MD - Last Filed: 11/08/22 08:27> Date Seen: 10/26/22 <Toño Amaro MD - Last Filed: 11/08/22 08:27> Chief complaint: Neuro Symptoms/Altered Deficit <Toño Amaro MD - Last Filed: 11/08/22 08:27> Stated complaint: L side numb, fingers tingling, tingling in chest <Toño Amaro MD - Last Filed: 11/08/22 08:27> Time Seen by Provider: 10/26/22 14:52 <Toño Amaro MD - Last Filed: 11/08/22 08:27> Source: patient <Toño Amaro MD - Last Filed: 11/08/22 08:27> Mode of arrival: ambulatory <Toño Amaro MD - Last Filed: 11/08/22 08:27> Limitations: no limitations <Toño Amaro MD - Last Filed: 11/08/22 08:27> History of Present Illness HPI narrative: Patient is a 52 year white male who recently was hospitalized for iliac stent and 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 This morning he has been doing fairly well until he did some toe raises and then went to work he developed some numbness in his left forearm and left leg he has no fevers chills cough, he felt a little bit of numbness in his leg as well as his arm although he noticed no weakness, no word- finding inability. He is concerned that maybe had just some sensation of shortness of breath but some tightness in his chest. He reports that the ultrasound here done after he had a thrombectomy did not show good veins and it was hard to read in [facility] head read his ultrasound. Currently he is not hypoxic, he is afebrile and his blood pressure stable. <Toño Amaro MD - Last Filed: 11/08/22 08:27> Related Data Home medications: Home Medications Medication Instructions Recorded Confirmed Plavix 10/10/22 aspirin 81 mg tablet,delayed PO 10/16/22 release enoxaparin 100 mg/mL subcutaneous mg subcut 10/16/22 syringe <Toño Amaro MD - Last Filed: 11/08/22 08:27> Allergies/adverse reactions: Allergies Allergy/AdvReac Type Severity Reaction Status Date / Time bee venom protein (honey bee) Allergy Severe SOB Verified 10/26/22 16:03 Penicillins Allergy Severe SOB Verified 10/26/22 16:03 <Toño Amaro MD - Last Filed: 11/08/22 08:27> Review of Systems Status of ROS: Reports: 6 or more systems reviewed and unremarkable except as noted in History and below <Toño Amaro MD - Last Filed: 11/08/22 08:27> [facility] Medical History: Medical History DVT (deep venous thrombosis) ?I82.409 - Acute embolism and thrombosis of unspecified deep veins of unspecified lower extremity (ICD-10) <Toño Amaro MD - Last Filed: 11/08/22 08:27> Social History: Social History Smoking Status: Former smoker Do you use any of these nicotine containing products: Smokeless Tobacco Second hand tobacco smoke exposure: No How often do you have a drink containing alcohol: monthly or less How many standard drinks containing alcohol do you have on a typical day: 1 or 2 How often do you have six or more drinks on one occasion: Never AUDIT-C Alcohol total score: 1 Non-prescribed substance use: denies use service: No <Toño Amaro MD - Last Filed: 11/08/22 08:27> Exam Narrative: Exam Narrative: Objective: Vital signs unremarkable HEENT is unremarkable no facial asymmetry neck is supple chest is clear no rales or wheezing Heart rhythm regular 2/6 systolic murmur no S3-S4 Abdomen benign soft nontender Extremities his left lower extremity has no swelling or edema he has got a long compression stocking on to his thigh, no redness or warmth, no palpable venous cords in the back of calf or thigh <Toño Amaro MD - Last Filed: 11/08/22 08:27> Const: Vital Signs, click to edit/add: Vital Signs - 24 hr 10/26/22 14:46 10/26/22 14:54 10/26/22 15:00 Temperature 96.8 F L Pulse Rate 77 76 Pulse Rate [Left P ulse Oximeter] 78 Respiratory Rate 20 Blood Pressure Blood Pressure [Ri ght Upper Arm] 134/86 Pulse Oximetry 97 99 98 Oxygen Delivery Me thod Room Air 10/26/22 15:01 10/26/22 15:02 10/26/22 15:04 Temperature Pulse Rate 77 80 Pulse Rate [Left P ulse Oximeter] Respiratory Rate Blood Pressure 130/92 H Blood Pressure [Ri ght Upper Arm] Pulse Oximetry 97 98 96 Oxygen Delivery Me thod 10/26/22 15:15 10/26/22 15:16 10/26/22 15:17 Temperature Pulse Rate 80 80 80 Pulse Rate [Left P ulse Oximeter] Respiratory Rate Blood Pressure 140/83 H Blood Pressure [Ri ght Upper Arm] Pulse Oximetry 98 98 98 Oxygen Delivery Me thod 10/26/22 15:30 10/26/22 15:32 10/26/22 15:50 Temperature Pulse Rate 78 80 73 Pulse Rate [Left P ulse Oximeter] Respiratory Rate Blood Pressure 124/84 Blood Pressure [Ri ght Upper Arm] Pulse Oximetry 98 98 98 Oxygen Delivery Me thod 10/26/22 15:51 10/26/22 15:53 10/26/22 16:00 Temperature Pulse Rate 81 81 77 Pulse Rate [Left P ulse Oximeter] Respiratory Rate Blood Pressure 128/80 Blood Pressure [Ri ght Upper Arm] Pulse Oximetry 98 99 98 Oxygen Delivery Me thod 10/26/22 16:02 10/26/22 16:20 10/26/22 16:30 Temperature Pulse Rate 75 70 71 Pulse Rate [Left P ulse Oximeter] Respiratory Rate Blood Pressure 135/73 Blood Pressure [Ri ght Upper Arm] Pulse Oximetry 97 98 97 Oxygen Delivery Me thod 10/26/22 16:32 Temperature Pulse Rate 70 Pulse Rate [Left P ulse Oximeter] Respiratory Rate Blood Pressure 132/76 Blood Pressure [Ri ght Upper Arm] Pulse Oximetry 98 Oxygen Delivery Me thod <Toño Amaro MD - Last Filed: 11/08/22 08:27> Vital Signs, click to edit/add: Vital Signs - 24 hr 10/26/22 14:46 10/26/22 14:54 10/26/22 15:00 Temperature 96.8 F L Pulse Rate 77 76 Pulse Rate [Left P ulse Oximeter] 78 Respiratory Rate 20 Blood Pressure Blood Pressure [Ri ght Upper Arm] 134/86 Pulse Oximetry 97 99 98 Oxygen Delivery Me thod Room Air 10/26/22 15:01 10/26/22 15:02 10/26/22 15:04 Temperature Pulse Rate 77 80 Pulse Rate [Left P ulse Oximeter] Respiratory Rate Blood Pressure 130/92 H Blood Pressure [Ri ght Upper Arm] Pulse Oximetry 97 98 96 Oxygen Delivery Me thod 10/26/22 15:15 10/26/22 15:16 10/26/22 15:17 Temperature Pulse Rate 80 80 80 Pulse Rate [Left P ulse Oximeter] Respiratory Rate Blood Pressure 140/83 H Blood Pressure [Ri ght Upper Arm] Pulse Oximetry 98 98 98 Oxygen Delivery Me thod 10/26/22 15:30 10/26/22 15:32 10/26/22 15:50 Temperature Pulse Rate 78 80 73 Pulse Rate [Left P ulse Oximeter] Respiratory Rate Blood Pressure 124/84 Blood Pressure [Ri ght Upper Arm] Pulse Oximetry 98 98 98 Oxygen Delivery Me thod 10/26/22 15:51 10/26/22 15:53 10/26/22 16:00 Temperature Pulse Rate 81 81 77 Pulse Rate [Left P ulse Oximeter] Respiratory Rate Blood Pressure 128/80 Blood Pressure [Ri ght Upper Arm] Pulse Oximetry 98 99 98 Oxygen Delivery Me thod 10/26/22 16:02 10/26/22 16:20 10/26/22 16:30 Temperature Pulse Rate 75 70 71 Pulse Rate [Left P ulse Oximeter] Respiratory Rate Blood Pressure 135/73 Blood Pressure [Ri ght Upper Arm] Pulse Oximetry 97 98 97 Oxygen Delivery Me thod 10/26/22 16:32 Temperature Pulse Rate 70 Pulse Rate [Left P ulse Oximeter] Respiratory Rate Blood Pressure 132/76 Blood Pressure [Ri ght Upper Arm] Pulse Oximetry 98 Oxygen Delivery Me thod <Nigel Meyers MD - Last Filed: 10/26/22 18:13> Documenting provider has reviewed patient's vital signs: yes <Nigel Meyers MD - Last Filed: 10/26/22 18:13> Course Vital Signs Vital signs: Initial Vital Signs Temperature 96.8 F L 10/26/22 14:46 Temperature Source Temporal Artery Scan 10/26/22 14:46 Pulse Rate 78 10/26/22 14:46 Respiratory Rate 20 10/26/22 14:46 Blood Pressure 134/86 10/26/22 14:46 Blood Pressure Mean 102 10/26/22 14:46 Blood Pressure Position Supine 10/26/22 14:46 Pulse Oximetry 97 10/26/22 14:46 Oxygen Delivery Method Room Air 10/26/22 14:46 Vital Signs Temperature 96.8 F L 10/26/22 14:46 Pulse Rate 78 10/26/22 14:46 Respiratory Rate 20 10/26/22 14:46 Blood Pressure 134/86 10/26/22 14:46 Pulse Oximetry 97 10/26/22 14:46 Oxygen Delivery Method Room Air 10/26/22 14:46 Temperature 96.8 F L 10/26/22 14:46 Pulse Rate 74 10/26/22 17:47 Respiratory Rate 20 10/26/22 14:46 Blood Pressure 128/75 10/26/22 18:20 Pulse Oximetry 97 10/26/22 17:47 Oxygen Delivery Method Room Air 10/26/22 14:46 <Toño Amaro MD - Last Filed: 11/08/22 08:27> Initial Vital Signs Temperature 96.8 F L 10/26/22 14:46 Temperature Source Temporal Artery Scan 10/26/22 14:46 Pulse Rate 78 10/26/22 14:46 Respiratory Rate 20 10/26/22 14:46 Blood Pressure 134/86 10/26/22 14:46 Blood Pressure Mean 102 10/26/22 14:46 Blood Pressure Position Supine 10/26/22 14:46 Pulse Oximetry 97 10/26/22 14:46 Oxygen Delivery Method Room Air 10/26/22 14:46 Vital Signs Temperature 96.8 F L 10/26/22 14:46 Pulse Rate 78 10/26/22 14:46 Respiratory Rate 20 10/26/22 14:46 Blood Pressure 134/86 10/26/22 14:46 Pulse Oximetry 97 10/26/22 14:46 Oxygen Delivery Method Room Air 10/26/22 14:46 Temperature 96.8 F L 10/26/22 14:46 Pulse Rate 74 08/30/23 17:47 Respiratory Rate 20 10/26/22 14:46 Blood Pressure 128/75 10/26/22 18:20 Pulse Oximetry 97 10/26/22 17:47 Oxygen Delivery Method Room Air 10/26/22 14:46 <Nigel Meyers MD - Last Filed: 10/26/22 18:13> Medical Decision Making MDM Narrative Medical decision making narrative: [age] year white male with the recent history of thrombectomy in the left lower extremity inferior vena cava and iliac clots. Patient is on triple therapy now for blood thinning. At this point he is concerned about stroke, heart attack, pulmonary embolus, or recurrent clot in his leg. He does not request us to look at his leg at this time as he is thinking he might need to have [facility] vascular review this in look at this again with them. At this point his EKG by my read shows normal sinus rhythm no acute ST T wave changes. His hemodynamics are normal. Will review his CT scan of the head chest with IV contrast to rule out PE and his troponins. Disposition then would involve possible transfer to [facility] more full assessment admission here. Addendum 3:48 p.m.: Patient's EKG looks very normal at a ventricular rate of 70 beats per minute by my read and no ST-T changes. His troponin is negative at [address] and head CT are pending. Pending these results disposition planning. In reviewing the patient's chart it did appear he had DVT, pulmonary embolus, thrombectomy and a stent placed in his groin. He has been on Lovenox Plavix and aspirin. If his chest CT here is negative and his head CT is negative then disposition assessment for studying his leg might be appropriate. <Toño Amaro MD - Last Filed: 11/08/22 08:27> [age] year white male with the recent history of thrombectomy in the left lower extremity inferior vena cava and iliac clots. Patient is on triple therapy now for blood thinning. At this point he is concerned about stroke, heart attack, pulmonary embolus, or recurrent clot in his leg. He does not request us to look at his leg at this time as he is thinking he might need to have [facility] vascular review this in look at this again with them. At this point his EKG by my read shows normal sinus rhythm no acute ST T wave changes. His hemodynamics are normal. Will review his CT scan of the head chest with IV contrast to rule out PE and his troponins. Disposition then would involve possible transfer to [facility] more full assessment admission here. Addendum 3:48 p.m.: Patient's EKG looks very normal at a ventricular rate of 70 beats per minute by my read and no ST-T changes. His troponin is negative at 0 [address] Chest CT and head CT are pending. Pending these results disposition planning. In reviewing the patient's chart it did appear he had DVT, pulmonary embolus, thrombectomy and a stent placed in his groin. He has been on Lovenox Plavix and aspirin. If his chest CT here is negative and his head CT is negative then disposition assessment for studying his leg might be appropriate. Luigi -- received Mr. Reynolds in hand-off at change of shift. Pending results of imaging including noncontrast head CT and a CTA of the chest. Underlying history of recurrent thrombus in the left leg with your recent thrombectomy; or actually x2 has he had clotted directly after initial procedure. Did speak with radiology about results of CT of head which was unremarkable. Did discuss that this does not actually rule out a stroke; the further imaging would be needed. Acknowledged that he is on triple therapy ?blood thinner?. The CTA chest showed resolved pulmonary embolus and minimal subsegmental bibasilar atelectasis. Speaking further with Mr. Reynolds to give him results of imaging, his symptoms have essentially resolved. 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 It was really the only feelings he was having this left chest/shoulder area and the numbness that had started in his left arm, then a feeling of some lightheadedness and diaphoresis that drove him to the ER concerned about stroke or cardiac event. After discussing at length, he feels quite certain that what he was likely experiencing was more likely a change in usual symptoms consistent with anxiety. 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 Does not feel that he needs any further evaluation and is comfortable returning home. We did discuss potential benefit of anxiolytics. He would like to have something available. Typically does not use pharmaceuticals. Medications usually prescribed for anxiety/depression seem to have an adverse effect on him in general. Opiates are barely effective. Spouse is an RN. Discussion was had with her as well. See patient discharge plan. <Nigel Meyers MD - Last Filed: 10/26/22 18:13> Lab Data Lab results reviewed: Yes I reviewed the patient's lab results <Nigel Meyers MD - Last Filed: 10/26/22 18:13> Labs: Lab Results 10/26/22 10/26/22 Range/Units 15:05 15:15 WBC 7.76 (4.50-11.00) K/uL RBC 4.39 (4.30-5.90) m/uL Hgb 12.4 L (13.5-17.5) gm/dL Hct 38.6 (37.0-53.0) % MCV 88 (80-100) fL MCH 28 (26-34) pg MCHC 32 (32-36) gm/dL RDW Coeff of Jen 13.3 (11.5-15.5) % Plt Count 442 H (140-440) K/uL Neut % (Auto) 60.0 (42.0-72.0) % Lymph % (Auto) 27.6 (20-44) % Wilkes % (Auto) 7.7 (0.0-11.0) % Eos % (Auto) 2.2 (0.0-7.0) % Baso % (Auto) 0.8 (0.0-3.0) % Neut # (Auto) 4.66 (1.7-7.0) K/uL Lymph # (Auto) 2.14 (0.90-2.90) K/uL Wilkes # (Auto) 0.60 (0.00-0.90) K/UL Eos # (Auto) 0.17 (0.00-0.50) K/uL Baso # (Auto) 0.06 (0.00-0.30) K/uL Abs Immat Gran (auto) 0.13 (0.00-0.30) K/uL Imm/Tot Granulo (auto) 1.7 % INR 0.97 (0.91-1.10) APTT 32 (23-33) Seconds Sodium 138 (135-149) mmol/L Potassium 4.1 (3.6-5.1) mmol/L Chloride 105 (96-114) mmol/L Carbon Dioxide 22 (20-32) mmol/L Anion Gap 11 (7-15) mEq/L BUN 25 (7-30) mg/dL Creatinine 1.0 (0.5-1.5) mg/dL Estimated Creat Clear 95.44 Estimated GFR 89 ml/min Glucose 98 (60-115) mg/dL Calcium 9.5 (8.4-10.6) mg/dL Troponin I < 0.01 L (0.01-0.04) ng/mL C-Reactive Protein 0.5 (0.5-1.0) mg/dL POC Troponin I 0.00 L (0.01-0.04) ng/ml <Toño Amaro MD - Last Filed: 11/08/22 08:27> Lab Results 10/26/22 10/26/22 Range/Units 15:05 15:15 WBC 7.76 (4.50-11.00) K/uL RBC 4.39 (4.30-5.90) m/uL Hgb 12.4 L (13.5-17.5) gm/dL Hct 38.6 (37.0-53.0) % MCV 88 (80-100) fL MCH 28 (26-34) pg MCHC 32 (32-36) gm/dL RDW Coeff of Jen 13.3 (11.5-15.5) % Plt Count 442 H (140-440) K/uL Neut % (Auto) 60.0 (42.0-72.0) % Lymph % (Auto) 27.6 (20-44) % Wilkes % (Auto) 7.7 (0.0-11.0) % Eos % (Auto) 2.2 (0.0-7.0) % Baso % (Auto) 0.8 (0.0-3.0) % Neut # (Auto) 4.66 (1.7-7.0) K/uL Lymph # (Auto) 2.14 (0.90-2.90) K/uL Wilkes # (Auto) 0.60 (0.00-0.90) K/UL Eos # (Auto) 0.17 (0.00-0.50) K/uL Baso # (Auto) 0.06 (0.00-0.30) K/uL Abs Immat Gran (auto) 0.13 (0.00-0.30) K/uL Imm/Tot Granulo (auto) 1.7 % INR 0.97 (0.91-1.10) APTT 32 (23-33) Seconds Sodium 138 (135-149) mmol/L Potassium 4.1 (3.6-5.1) mmol/L Chloride 105 (96-114) mmol/L Carbon Dioxide 22 (20-32) mmol/L Anion Gap 11 (7-15) mEq/L BUN 25 (7-30) mg/dL Creatinine 1.0 (0.5-1.5) mg/dL Estimated Creat Clear 95.44 Estimated GFR 89 ml/min Glucose 98 (60-115) mg/dL Calcium 9.5 (8.4-10.6) mg/dL Troponin I < 0.01 L (0.01-0.04) ng/mL C-Reactive Protein 0.5 (0.5-1.0) mg/dL POC Troponin I 0.00 L (0.01-0.04) ng/ml <Nigel Meyers MD - Last Filed: 10/26/22 18:13> Discharge Plan Discharge Clinical Impression: Paresthesia, DVT (deep venous thrombosis), Mild shortness of breath, Anxiety <Toño Amaro MD - Last Filed: 11/08/22 08:27> Patient Disposition: Home w/ Parent or Adult <Toño Amaro MD - Last Filed: 11/08/22 08:27> Condition: Improved <Toño Amaro MD - Last Filed: 11/08/22 08:27> Instructions: Anxiety (ED) <Toño Amaro MD - Last Filed: 11/08/22 08:27> Additional Instructions: Of course stay in close contact with vascular. Please return for recurrence of numbness of your arm, increasing shortness of br eath, certainly new and focal weakness. Hopefully you can get back to increasing your activity level soon. Lorazepam and hydroxyzine from [facility] if needed. <Toño Amaro MD - Last Filed: 09/12/23 08:27> Prescriptions: No Action Plavix Hold Instructions: Doctor's Order aspirin 81 mg tablet,delayed release (DR/EC) PO enoxaparin 100 mg/mL syringe subcut <Toño Amaro MD - Last Filed: 11/08/22 08:27> Follow Up/Referrals: Martinez Merritt MD [Primary Care Provider] - <Toño Amaro MD - Last Filed: 11/08/22 08:27> Stand Alone Forms: [facility] Info Instructions <Toño Amaro MD - Last Filed: 11/08/22 08:27>
[2022-10-26 15:29] LABS: Basophils Absolute Auto 0.06 K/uL (0.00-0.30); Basophils Percent Auto 0.8 % (0.0-3.0); Eosinophils Absolute Auto 0.17 K/uL (0.00-0.50); Eosinophils Percent Auto 2.2 % (0.0-7.0); Hematocrit 38.6 % (37.0-53.0); Hemoglobin* 12.4 gm/dL (13.5-17.5); Immature Granulocytes Abs Auto 0.13 K/uL (0.00-0.30); Immature Granulocytes Pct Auto 1.7 %; Lymphocytes Absolute Auto 2.14 K/uL (0.90-2.90); Lymphocytes Percent Auto 27.6 % (20-44); Mean Corpuscular HGB Conc 32 gm/dL (32-36); Mean Corpuscular Hemoglobin 28 pg (26-34); Mean Corpuscular Volume 88 fL (80-100); Monocytes Percent Auto 7.7 % (0.0-11.0); Neutrophils Absolute Auto 4.66 K/uL (1.7-7.0); Platelet Count* 442 K/uL (140-440); RDW Coefficient of Variation % 13.3 % (11.5-15.5); Red Blood Count 4.39 m/uL (4.30-5.90); White Blood Count* 7.76 K/uL (4.50-11.00)
[2022-10-26 15:33] LABS: Slide Review Reflex No
[2022-10-26 15:49] LABS: Chloride* 105 mmol/L (96-114); Potassium* 4.1 mmol/L (3.6-5.1); Sodium* 138 mmol/L (135-149)
[2022-10-26 15:50] LABS: INR 0.97 (0.91-1.10); Prothrombin Time 13.5 Seconds
[2022-10-26 15:51] LABS: Partial Thromboplastin Time* 32 Seconds (23-33)
[2022-10-26 15:52] LABS: Anion Gap 11 mEq/L (7-15); Carbon Dioxide* 22 mmol/L (20-32); Est. Creatinine Clearance* 95.44; Estimated Glomerular Filt Rate 89 ml/min
[2022-10-26 15:53] LABS: Blood Urea Nitrogen* 25 mg/dL (7-30); Calcium* 9.5 mg/dL (8.4-10.6); Glucose* 98 mg/dL (60-115)
[2022-10-26 15:56] LABS: C Reactive Protein* 0.5 mg/dL (0.5-1.0)
[2022-10-26 16:09] LABS: Troponin I* < 0.01 ng/mL (0.01-0.04)
== END 2022-10-26 18:28 | disposition home or self-care (01) ==
PROVIDERS: Family Medicine; Emergency Provider Family Medicine; PCP Family Medicine
DX: R20.2 Paresthesia of skin (principal); I82.409 Acute embolism and thrombosis of unspecified deep veins of unspecified lower extremity; R06.02 Shortness of breath; F41.9 Anxiety disorder, unspecified
CPT/HCPCS: 36415; 70450; 71275; 80048; 84484; 85025; 85610; 85730; 86140; 94761; 99284; 99285; Q9967

== ENCOUNTER 2024-03-18 14:19 | Outpatient (RCR) | payer BC, SELFPAY | END 2024-07-16 23:59 | disposition home or self-care (01) | PROVIDERS: PCP Family Medicine; Visit Provider Student in an Organized Health Care Education/Training Program | DX: H81.10 Benign paroxysmal vertigo, unspecified ear (principal); Z51.89 Encounter for other specified aftercare | CPT/HCPCS: 97110; 97162 ==